=== PATIENT | female | born 1965 | race Caucasian/White ===

== ENCOUNTER → 2016-04-18 | Outpatient (CLI) | payer BC ==
[~2016-04-18] MED LIST: CATAPRES0.3 MG PO; POTASSIUM GLUCO99 M1 PO; ULTRAM50 MG PO
== END | disposition home or self-care (01) ==
LOC: CDC 14:14
DX: Z01.810 Encounter for preprocedural cardiovascular examination (principal); N95.0 Postmenopausal bleeding
CPT/HCPCS: 93000

== ENCOUNTER 2016-04-22 06:43 | Day surgery (SDC) | payer BC ==
[~2016-04-22] VITALS: Ht 162.6 cm; Wt 55.8 kg
[2016-04-22 07:31] VITALS: BP 134/90
[2016-04-22 09:55] VITALS: BP 148/108
[2016-04-22 10:55] VITALS: BP 120/76
[2016-04-22 11:33] VITALS: BP 127/83
== END 2016-04-22 11:43 | disposition home or self-care (01) ==
LOC: SDC 06:43
DX: N84.0 Polyp of corpus uteri (principal); N92.4 Excessive bleeding in the premenopausal period; I10 Essential (primary) hypertension; R25.2 Cramp and spasm
CPT/HCPCS: 88305; J1100; J1885; J2250; J2405; J3010

== ENCOUNTER 2016-05-05 10:12 | Emergency (ER) | payer BC ==
[~2016-05-05] VITALS: Ht 162.6 cm; Wt 53.7 kg
[2016-05-05 10:55] LABS: BASOPHIL COUNT 0.1 K/uL (0-0.1); EOSINOPHIL COUNT 0.1 K/uL (0-0.3); HEMATOCRIT 45.9 % (36.0-46.0); IMMATURE GRANULOCYTE (%) 0.2 % (0.0-0.7); IMMATURE GRANULOCYTE COUNT 0.3 K/uL; LYMPHOCYTE COUNT 1.9 K/uL (1.0-2.8); MCH 30.1 PG (29.0-34.0); MCHC 33.6 G/DL (30.0-36.0); MCV 89.8 FL (83-99); MEAN PLAT.VOLUME 9.6 uM^3 (9.5-12.4); MONOCYTE (%) 5.1 % (3-12); MONOCYTE COUNT 0.7 K/uL (0-0.8); NEUTROPHIL (%) 78.6 % (45-76); NEUTROPHIL COUNT 10.2 K/uL (1.8-6.4); PLATELET COUNT 456 K/uL (156-360); RBC DIS.WIDTH-CV 12.6 % (11.8-14.6); RBC DIS.WIDTH-SD 40.9 % (39-53); RED BLOOD COUNT 5.11 M/uL (3.80-5.20)
[2016-05-05 11:07] LABS: CHLORIDE 110 mEq/L (99-109)
[2016-05-05 11:08] LABS: POTASSIUM 3.9 mEq/L (3.7-5.4); SODIUM 143 mEq/L (136-147)
[2016-05-05 11:09] LABS: GLUCOSE 167 mg/dL (70-99)
[2016-05-05 11:11] LABS: ANION GAP 13 MEQ/L (2-14)
[2016-05-05 11:13] LABS: GFR ESTIMATE (CALCULATED) > 59 mL/min/
[2016-05-05 11:14] LABS: UREA NITROGEN (BUN) 9 mg/dL (9-23)
[2016-05-05 13:28] VITALS: BP 127/91
== END 2016-05-05 13:35 | disposition home or self-care (01) ==
LOC: EME 10:12
PROVIDERS: Emergency Medicine
DX: R51 Headache (principal); I10 Essential (primary) hypertension; Z88.4 Allergy status to anesthetic agent; Z88.8 Allergy status to other drugs, medicaments and biological substances
CPT/HCPCS: 70450; 80048; 85025; 93005; 99281; 99285; J1885; J2765